=== PATIENT | male | born 1985 | race Caucasian/White ===

== ENCOUNTER 2017-08-24 15:01 | Emergency (ER) | payer MEDICARE ==
[~2017-08-24] VITALS: Ht 175.3 cm; Wt 100.0 kg
[2017-08-24 15:08] VITALS: BP 148/92; PULSE 117; RESP 19; TEMP 97.9; O2SAT 97
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
[2017-08-24] MEDS ORDERED: CLON1TAB PO (15:30)
[2017-08-24] MEDS ORDERED: STRA80CA PO (15:30)
[2017-08-24] MEDS ORDERED: AMBI10TA PO (15:30)
[2017-08-24] MEDS ORDERED: SOMA250T PO (15:30)
[2017-08-24] MEDS ORDERED: HYDR-3366 PO (15:30)
[2017-08-24 16:20] LABS: AUTOMATED NEUTROPHIL # 5.4 TH/MM3 (1.8-7.7); BASOPHIL % 0.4 % (0.0-2.0); EOSINOPHIL # 0.1 TH/MM3 (0-0.4); EOSINOPHIL % 0.9 % (0.0-4.0); HEMATOCRIT 43.4 % (39.0-51.0); HEMOGLOBIN 15.3 GM/DL (13.0-17.0); LYMPH % 24.4 % (9.0-44.0); MEAN CELL VOLUME 82.9 FL (80.0-100.0); MEAN CORPUSCULAR HEMOGLOBIN 29.2 PG (27.0-34.0); MEAN CORPUSCULAR HGB CONC 35.2 % (32.0-36.0); MEAN PLATELET VOLUME 6.7 FL (7.0-11.0); MONO % 7.3 % (0.0-8.0); MONOCYTE # 0.6 TH/MM3 (0-0.9); PLATELET COUNT 359 TH/MM3 (150-450); RED BLOOD COUNT 5.23 MIL/MM3 (4.50-5.90); RED CELL DISTRIBUTION WIDTH 12.6 % (11.6-17.2); WHITE BLOOD COUNT 8.1 TH/MM3 (4.0-11.0)
[2017-08-24 16:45] LABS: ALBUMIN 3.8 GM/DL (3.4-5.0); AST (GOT) 42 U/L (15-37); BICARBONATE 25.4 MEQ/L (21.0-32.0); BLOOD UREA NITROGEN 11 MG/DL (7-18); CALCIUM 8.9 MG/DL (8.5-10.1); CHLORIDE 104 MEQ/L (98-107); CREATININE 0.83 MG/DL (0.60-1.30); GLOMERULAR FILTRATION RATE 110 ML/MIN (>89); GLUCOSE,RANDOM 126 MG/DL (74-106); SODIUM (NA) 138 MEQ/L (136-145)
[2017-08-24 16:46] LABS: ALT (GPT) 46 U/L (12-78)
[2017-08-24 16:55] LABS: ALKALINE PHOSPHATASE 82 U/L (45-117); TOTAL PROTEIN 7.5 GM/DL (6.4-8.2)
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
[2017-08-25 00:27] VITALS: BP 127/66; PULSE 89; RESP 18; O2SAT 96
[2017-08-25 05:30] VITALS: BP 130/70; PULSE 85; RESP 18; O2SAT 98
[2017-08-25 10:27] VITALS: BP 130/82; PULSE 120; RESP 18; TEMP 98.6; O2SAT 98
--- NOTE | 2017-08-25 13:41 | PD ---
Physical Exam Date Seen by Provider: August 25, 2017 Time Seen by Provider: 13:39 Narrative The patient was seen and evaluated by the psychiatric nurse practitioner and cleared for discharge. The patient tells me that he needs to get back to [place] as he took a bus here he does not know how to get back. The patient is agitated because he needs to get back to [place]. He also tells me that he needs a refill of his Klonopin for seizures. He states that he is allergic to all other seizure medications and must have Klonopin. When I instruct him that we cannot refill controlled substances in the emergency department, he becomes more agitated. Data Data Last Documented VS Vital Signs Date Time Temp Pulse Resp B/P (MAP) Pulse Ox O2 Delivery O2 Flow Rate FiO2 08/25/17 10:27 98.6 120 18 130/82 (98) 98 Room Air Orders Orders Complete Blood Count With Diff (08/24/17 15:18) Comprehensive Metabolic Panel (08/24/17 15:18) Thyroid Stimulating Hormone (08/24/17 15:18) Psych Screen (08/24/17 15:18) Drug Screen, Random Urine (08/24/17 15:18) Alcohol (Ethanol) (08/24/17 15:18) Diet Regular Basic (08/24/17 Dinner) Hydroxyzine Pamoate (Vistaril) (08/24/17 17:45) Diet Regular Basic (08/25/17 Breakfast) Diet Regular Basic (08/25/17 Lunch) Labs Laboratory Tests Test 08/24/17 15:30 08/24/17 16:00 White Blood Count 8.1 TH/MM3 Red Blood Count 5.23 MIL/MM3 Hemoglobin 15.3 GM/DL Hematocrit 43.4 % Mean Corpuscular Volume 82.9 FL Mean Corpuscular Hemoglobin 29.2 PG Mean Corpuscular Hemoglobin Concent 35.2 % Red Cell Distribution Width 12.6 % Platelet Count 359 TH/MM3 Mean Platelet Volume 6.7 FL Neutrophils (%) (Auto) 67.0 % Lymphocytes (%) (Auto) 24.4 % Monocytes (%) (Auto) 7.3 % Eosinophils (%) (Auto) 0.9 % Basophils (%) (Auto) 0.4 % Neutrophils # (Auto) 5.4 TH/MM3 Lymphocytes # (Auto) 2.0 TH/MM3 Monocytes # (Auto) 0.6 TH/MM3 Eosinophils # (Auto) 0.1 TH/MM3 Basophils # (Auto) 0.0 TH/MM3 CBC Comment DIFF FINAL Differential Comment Blood Urea Nitrogen 11 MG/DL Creatinine 0.83 MG/DL Random Glucose 126 MG/DL Total Protein 7.5 GM/DL Albumin 3.8 GM/DL Calcium Level 8.9 MG/DL Alkaline Phosphatase 82 U/L Aspartate Amino Transf (AST/SGOT) 42 U/L Alanine Aminotransferase (ALT/SGPT) 46 U/L Total Bilirubin 1.0 MG/DL Sodium Level 138 MEQ/L Potassium Level 3.5 MEQ/L Chloride Level 104 MEQ/L Carbon Dioxide Level 25.4 MEQ/L Anion Gap 9 MEQ/L Estimat Glomerular Filtration Rate 110 ML/MIN Thyroid Stimulating Hormone 3rd Gen 1.510 uIU/ML Ethyl Alcohol Level LESS THAN 3 MG/DL Urine Opiates Screen NEG Urine Barbiturates Screen NEG Urine Amphetamines Screen NEG Urine Benzodiazepines Screen NEG Urine Cocaine Screen NEG Urine Cannabinoids Screen POS MDM Supervised Visit with DARIUS: No Diagnosis Primary Impression: Medical clearance for psychiatric admission Additional Impressions: Unspecified episodic mood disorder malingering Referrals: [facility] call for appointment Patient Instructions: General Instructions, Medical Clearance for Psychiatric Care (ED) Additional Instruction: Follow up at [facility]. Return to the emergency department for any acute, worsening of symptoms. Med/Other Pt SpecificInfo: No Change to Meds Disposition: 01 DISCHARGE HOME Condition: Stable Catie Gillespie MARYANNE August 25, 2017 13:41
== END 2017-08-25 14:24 | disposition home or self-care (01) ==
LOC: NEPD 15:01 → NEPJ 08-25 14:24
DX: F31.9 Bipolar disorder, unspecified (principal); Z76.5 Malingerer [conscious simulation]; Z79.899 Other long term (current) drug therapy
CPT/HCPCS: 80053; 80307; 84443; 85025; 99283